=== PATIENT | male | born 1950 | race Caucasian/White ===

== ENCOUNTER 2021-10-05 17:58 | Inpatient (IN) | payer OTHER ==
[2021-10-05 18:25] VITALS: BMI 32.3
[2021-10-05] MEDS ORDERED: MAGNESIUM HYDROX 2400MG/30ML ORAL SUSPENSION 30 ML CUP PO PRN (23:21)
[2021-10-05] MEDS ORDERED: MAG HYDROX/AL HYDROX/SIMETH 30 ML UNIT-DOSE CUP PO PRN (23:21)
[2021-10-05] MEDS ORDERED: LOPERAMIDE HCL 2 MG CAPSULE PO PRN (23:21)
[2021-10-05] MEDS ORDERED: LORazepam 1 MG TABLET PO PRN (23:21)
[2021-10-05] MEDS ORDERED: MENTHOL/PHENOL 1 EACH UD MM PRN (23:21)
[2021-10-05] MEDS ORDERED: BISMUTH SUBSALICYLATE 524 MG/30 ML PO PRN (23:21)
[2021-10-05] MEDS ORDERED: MAGNESIUM CITRATE 300 ML BOTTLE PO PRN (23:21)
[2021-10-05] MEDS ORDERED: hydrOXYzine PAMOATE 25 MG CAPSULE (FP) PO PRN (23:21)
[2021-10-05] MEDS ORDERED: ONDANSETRON *ODT* 4 MG TABLET SL PRN (23:21)
[2021-10-05] MEDS ORDERED: IBUPROFEN 400 MG TABLET (FP) PO PRN (23:21)
[2021-10-05] MEDS ORDERED: guaiFENesin 200 MG/10 ML 10 ML UNIT-DOSE CUPS PO PRN (23:21)
[2021-10-05] MEDS ORDERED: DICYCLOMINE HCL 10 MG CAPSULE PO PRN (23:21)
[2021-10-05] MEDS ORDERED: ACETAMINOPHEN 325 MG TABLET (FP) PO PRN ×2 (23:21)
[2021-10-05] MEDS ORDERED: P-EPHED 60MG/TRIPROLIDI 2.5MG TABLET PO PRN (23:21)
[2021-10-06] MEDS: LORazepam 2 MG TABLET PO SCH ×5 (00:50→22:35)
[2021-10-06] MEDS: PRENATAL VITAMINS W/ FOLIC ACID TABLET (FP) PO SCH (10:44)
[2021-10-06 14:13] LABS: HEMATOCRIT 33.3 % (35.4-49); HEMOGLOBIN 11.4 GM/dL (11.7-16.9); MCH 36.6 pg (25.7-33.7); MCHC 34.3 g/dl (32.0-35.9); MEAN CELL VOLUME 106.6 fl (80-96); MEAN PLT VOLUME 8.6 fl (7.5-11.1); PLATELET COUNT 105 10^3/uL (134-434); RBC 3.13 M/mm3 (4.00-5.60); RDW 14.6 % (11.9-15.9); WHITE BLOOD COUNT 3.1 K/mm3 (4.0-10.0)
[2021-10-06 14:14] LABS: ALBUMIN 3.6 g/dl (3.4-5.0); BLOOD UREA NITROGEN 15.1 mg/dL (7-18)
[2021-10-06 14:18] LABS: CREATININE 1.1 mg/dL (0.55-1.3)
[2021-10-06 14:19] LABS: TOT PROT 6.5 g/dl (6.4-8.2)
[2021-10-06] MEDS: THIAMINE HCL 100 MG TABLET (FP) PO SCH (22:35)
[2021-10-06] MEDS: MELATONIN 5 MG TABLETS PO SCH (22:35)
[2021-10-06] MEDS: METHOCARBAMOL 500 MG TABLET PO PRN (22:36)
[2021-10-07] MEDS: LORazepam 1 MG TABLET PO SCH ×4 (05:18→22:30)
[2021-10-07] MEDS: PRENATAL VITAMINS W/ FOLIC ACID TABLET (FP) PO SCH (10:41)
[2021-10-07] MEDS: THIAMINE HCL 100 MG TABLET (FP) PO SCH (22:30)
[2021-10-07] MEDS: MELATONIN 5 MG TABLETS PO SCH (22:30)
[2021-10-08] MEDS ORDERED: LORazepam 0.5 MG TABLET PO PRN
[2021-10-08] MEDS: LORazepam 0.5 MG TABLET PO SCH ×4 (05:59→22:09)
[2021-10-08] MEDS: PRENATAL VITAMINS W/ FOLIC ACID TABLET (FP) PO SCH (10:50)
[2021-10-08] MEDS: THIAMINE HCL 100 MG TABLET (FP) PO SCH (22:09)
[2021-10-08] MEDS: MELATONIN 5 MG TABLETS PO SCH (22:09)
[2021-10-09] MEDS ORDERED: LORazepam 0.5 MG TABLET PO ONE (05:00)
[2021-10-09] MEDS: PRENATAL VITAMINS W/ FOLIC ACID TABLET (FP) PO SCH (10:07)
[2021-10-09] MEDS: METHOCARBAMOL 500 MG TABLET PO PRN (10:07)
[2021-10-09 12:54] VITALS: BP 156/79; PULSE 72; TEMP 97.4
== END 2021-10-09 14:28 | disposition home or self-care (01) | DRG 897 ==
LOC: YASAS 17:58 → Y3N 23:35
PROVIDERS: ADMIT Allergy & Immunology; ATTEND Allergy & Immunology
PROC: HZ2ZZZZ Detoxification Services for Substance Abuse Treatment (ICD-10-PCS; principal; 2021-10-06)
DX: F10.230 Alcohol dependence with withdrawal, uncomplicated (principal); F12.20 Cannabis dependence, uncomplicated; F19.24 Other psychoactive substance dependence with psychoactive substance-induced mood disorder; F31.9 Bipolar disorder, unspecified; F41.9 Anxiety disorder, unspecified; Z21 Asymptomatic human immunodeficiency virus [HIV] infection status; E78.5 Hyperlipidemia, unspecified; R25.3 Fasciculation; Z96.642 Presence of left artificial hip joint; Z86.19 Personal history of other infectious and parasitic diseases; Z91.14 Patient's other noncompliance with medication regimen
CPT/HCPCS: 36415; 80053; 85027; 86780; 87811; 93005; 93010; C9803; U0003; U0005